=== PATIENT | female | born 1985 | race American Indian/Alaskan Native ===

== ENCOUNTER 2017-09-06 05:59 | Emergency (ER) | payer OTHER, MEDICAID ==
[2017-09-06 06:07] VITALS: BP 120/83; PULSE 74; RESP 16; TEMP 97.8; O2SAT 100
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
== END 2017-09-06 06:43 | disposition home or self-care (01) ==
LOC: C.ER 05:59 → SUPCPDRO 05:59 → C.ER 06:43
DX: S16.1XXA Strain of muscle, fascia and tendon at neck level, initial encounter (principal); V49.40XA Driver injured in collision with unspecified motor vehicles in traffic accident, initial encounter